=== PATIENT | female | born 1970 | race Caucasian/White ===

== ENCOUNTER 2024-07-04 01:48 | Emergency (ER) | payer SELFPAY ==
[2024-07-04] MEDS ORDERED: ETOMIDATE 20 MG/10 ML VIAL IV ONE (01:49)
[2024-07-04] MEDS ORDERED: ROCURONIUM 50 MG/5 ML VIAL IV ONE (01:49)
--- OUTSIDE RECORDS SUMMARY | 2024-07-04 01:51 | XMS REPORT | Continuity of Care Document ---
Author Name Unknown Address [address] [address] [place] [address] [facility] [place] Address [address] [place] [address] Care Team Providers Care Display Mechanic Name Role Phone PCP, PATIENT DOES NOT HAVE A Primary Care Physic jorje Unavailable Thompson Pinedo Attending Clinician UnavailFaviola Morales Attending Clinician FAVIOLA EL Attending Clinician Unavailab VERONICA Montes Attending Clinician Unavailabl e Sadanala_U Attending Clinician Unavailable Anel Mills Attending Clinician Unavailable Anel Mills Admitting Clinician Unavailable FAVIOLA EL Admitting Clinician Unavailab sarah Higgins_U Admitting Clinician Unavailable Physician, No Primary or Family Admitting Clinic jorje Unavailable Payers Payer Name Policy Type Policy Number Effective Date Expirati on Date Source [employer] [place] [id number] 2011 00:00:00 [place] [id number] 2011 00:00:00 Problems Condition Name Condition Details Condition Category Status Onset Date Resolution Date Last Treatment Date Treating Clinician Comments Source Acute pharyngiti s Acute Pharyngiti s Problem Active 6-14 00:00: 00 [facility] Allergies, Adverse Reactions, Alerts Allergy Name Allergy Type Status Severity Reaction(s) Onset Date Inactive Date Treating Clinician Comments Source No Known Allergie s DA Active U 2015-03 00:00: 00 [facility] No Known Allergie s DA Active U 2015-03 00:00: 00 [facility] NO KNOWN ALLERGIE S Drug Class Active [facility] Social History Social Habit Start Date Stop Date Quantity Comments Source Sexual orientation U [facility] Sex Assigned At 1971 00:00:00 1971 00:00:00 [facility] Smoking Status Start Date Stop Date Source Tobacco smoking consumption unknown [facility] Never Smoker [facility] Medications Ordered Medication Name Filled Medication Name Start Date Stop Date Current Medication? Ordering Clinician Indication Dosage Frequency Signature (SIG) Comments Components Source cefTRIAXone (ROCEPHIN) 1,000 mg in NaCl 0.9% (NS) 100 mL MINI-BAG 05-22 19:15: 00 05-22 19:55 :00 No 1000mg 1,000 mg, IV Piggyback, ONCE, 1 dose, On Sun05/23/23 at 1415, Administer over 30 Minutes, 100 mL
Reas on for Anti-Infec tive: Documented Infection< br>Documen jackie Infection Site: Urine
D uration of Therapy: Once (ED) [facility] lactated ringers IV infusion 1,000 mL 05-22 19:15: 00 05-22 19:25 :00 No 1000mL at 999 mL/hr, 1,000 mL, IV Infusion, ONCE, 1 dose, On Sun05/23/23 at 1415, [facility] NaCl 0.9% (NS) bolus infusion 1,000 mL 05-22 18:15: 00 05-22 18:35 :00 No 1000mL at 999 mL/hr, 1,000 mL, IV Infusion, ONCE, 1 dose, On Sun05/23/23 at 1315, PADDY [facility] haloperidol lactate (HALDOL) injection 5 mg 05-22 17:30: 00 05-22 17:43 :00 No 5mg 5 mg, Intravenou s, ONCE, 1 dose, On Sun05/23/23 at 1230, STAT [facility] ondansetron 4 mg disintegrat ing tablet 05-22 00:00: 00 Yes [id number] 4mg Take 1 tablet by mouth every 8 (eight) hours as needed for Nausea and Vomiting (N/V). [facility] cephALEXin 500 mg capsule 05-22 00:00: 00 06-02 04:59 :00 No [id number] 1000mg Take 2 capsules by mouth in the morning and 2 capsules in the evening. Do all this for 10 days. [facility] ergocalcife rol (vitamin D2) 1,250 mcg (50,000 unit) capsule TAKE 1 CAPSULE BY MOUTH 1 TIME A WEEK ergocalcife rol (vitamin D2) 1,250 mcg (50,000 unit) capsule TAKE 1 CAPSULE BY MOUTH 1 TIME A WEEK No ergocalcif marianne (vitamin D2) 1,250 mcg (50,000 unit) capsule TAKE 1 CAPSULE BY MOUTH 1 TIME A WEEK [facility] propranolol 40 mg tablet Take 1 tablet twice a day by oral route. propranolol 40 mg tablet Take 1 tablet twice a day by oral route. No 1 BID propranolo l 40 mg tablet Take 1 tablet twice a day by oral route. [facility] buspirone 15 mg tablet TAKE 1 TABLET BY MOUTH THREE TIMES DAILY buspirone 15 mg tablet TAKE 1 TABLET BY MOUTH THREE TIMES DAILY No buspirone 15 mg tablet TAKE 1 TABLET BY MOUTH THREE TIMES DAILY [facility] cyanocobala min (vit B-12) 1,000 mcg/mL injection solution ADMINISTER 1 ML IN THE MUSCLE 1 TIME A MONTH cyanocobala min (vit B-12) 1,000 mcg/mL injection solution ADMINISTER 1 ML IN THE MUSCLE 1 TIME A MONTH No cyanocobal couch (vit B-12) 1,000 mcg/mL injection solution ADMINISTER 1 ML IN THE MUSCLE 1 TIME A MONTH [facility] Vital Signs Vital Name Observation Time Observation Value Comments S ource Systolic blood pressure 2023-05-23 20:01:00 144 mm[Hg] [facility] Diastolic blood pressure 2023-05-23 20:01:00 106 mm[Hg] [facility] Heart rate 2023-05-23 20:01:00 77 /min [facility] Body temperature 2023-05-23 20:01:00 36.83 Alessandra [facility] Respiratory rate 2023-05-23 20:01:00 21 /min [facility] Oxygen saturation in Arterial blood by Pulse oximetry 2023-05-23 20:01:00 95 /min [facility] Body height 2023-05-23 16:56:00 165.1 cm [facility] Body weight 2023-05-23 16:56:00 65.772 kg [facility] BMI 2023-05-23 16:56:00 24.13 kg/m2 [facility] BP Diastolic 2021-08-16 00:00:00 89 mm[Hg] [facility] Height 2021-08-16 00:00:00 65 [in_i] [facility] BMI (Body Mass Index) 2021-08-16 00:00:00 26.5 kg/m2 [facility] BP Systolic 2021-08-16 00:00:00 129 mm[Hg] [facility] Body Weight 2021-08-16 00:00:00 159 [lb_av] [facility] Procedures Procedure Date / Time Performed Performing Clinician Source URINALYSIS 2023-05-23 18:32:00 Faviola El Un [facility] URINE DRUG (IMMUNOASSAY) - COMPREHENSIVE DRUG SCREEN W/O REFLEX 2023-05-23 18:32:00 Faviola El [facility] RAPID INFLUENZA A/B 2023-05-23 17:28:00 Peter El [facility] COVID-19 (ID NOW RAPID TESTING) 2023-05-23 17:28:00 Faviola El [facility] XR CHEST 1 VW 2023-05-23 17:25:[facility] 2023-05-23 17:17:00 Faviola El Un [facility] TROPONIN I 2023-05-23 17:17:00 Faviola El Un [facility] COMP. METABOLIC PANEL ([id number]) 2023-05-23 17:17:00 Faviola El [facility] CBC WITH DIFF 2023-05-23 17:17:00 [facility] AND [facility]REATMENT 2023-05-23 16:54:26 Doctor Unassigned, [place] [facility] Partial Hysterectomy 2011-03-05 00:00:00 [facility] Carpal Tunnel Surgery 2006-03-05 00:00:00 [facility] Augmentation Mammoplasty 2006-03-05 00:00:00 [facility] Plan of Care Planned Activity Planned Date Details Comments Source Diagnostic Test Pending 2021-08-16 00:00:00 rapid influenza virus A + B and SARS CoV + SARS CoV 2 Ag panel, IA, upper respiratory specimen [code = rapid influenza virus A + B and SARS CoV + SARS CoV 2 Ag panel, IA, upper respiratory specimen] [facility] Diagnostic Test Pending 2021-08-16 00:00:00 rapid strep group A, throat [code = rapid strep group A, throat] [facility] Encounters Start Date/Time End Date/Time Encounter Type Admission Type Attending [facility] Care Facility Care Department Encounter ID Source 2023-07-20 08:00:00 2023-07-20 08:00:00 Outpatient LUZ MARIA Pinedo Thompson [facility] [id number] [facility] 2023-05-23 12:00:00 2023-05-23 15:12:00 Emergency Faviola El [facility] ([facility]) [id number] [facility] 2023-05-23 12:00:00 2023-05-23 15:12:00 Emergency X FAVIOLA EL [facility] ERT [id number] [facility] 2022-03-29 08:05:00 2022-03-29 23:59:00 Outpatient VERONICA LEONG [id number] [facility] 2021-09-01 06:30:00 2021-09-01 06:30:00 Outpatient Sadanala_U VFP VFP [id number] [facility] 2021-08-17 01:47:00 2021-08-17 01:47:00 Outpatient Sadanala_U VFP VFP [id number] [facility] 2021-08-16 11:51:00 2021-08-16 11:51:00 Outpatient Sadanala_U VFP VFP [id number] [facility] 2021-08-16 00:00:00 2021-08-16 00:00:00 Misty Higgins MD: [id number] [facility], [facility] [address], [place] [address] , Ph. VFP [place] - [facility] - _HOU_[facility] [id number] [facility] 2020-11-02 08:00:00 2020-11-02 08:00:00 Outpatient Thompson Johnson [facility] [id number] [facility] 2019-09-26 12:00:00 2019-09-26 12:00:00 Outpatient Anel Arora [facility] [id number] [facility] Results Test Description Test Time Test Comments Results Resul t Comments Source XR CHEST 1 2023-05-05 0 18:57:49 EXAM: XR CHEST 1 05/23/2023 12:20 PM HISTORY: 51 years old Female with r/o pneumonia TECHNIQUE: Portable AP view of the chest. COMPARISON: None FINDINGS: Lungs and pleura: The lungs are well-expanded and clear. No focalconsolidation, pneumothorax, or pleural effusion is seen. Cardiomediastinal: The cardiomediastinal silhouette is upper limit ofnormal in size. Musculoskeletal: No acute osseous abnormality. [facility] and B and SARS-CoV+SARS-CoV-2 (COVID- 19) Ag panel - Upper respiratory specimen byRapid [id number] 11:29:08 * Test Item Value Reference Range Interpretation Comme nts Influenza A (test code = Influenza A) Presumptive Negative Influenza B (test code = Influenza B) Presumptive Negative SARS-CoV-2 Antigen (test code = SARS-CoV-2 Antigen) Presumptive Negative [facility] Notes Date/Time Note Provider Source 2023-05-23 15:12:26 Pt discharged to home, pt given printed and verbal discharge instructions. Patient verbalized understanding and able to teach back discharge instructions Pt verbalized understanding of instructions, pt awake alert oriented x 4, resp reg unlabored, skin w/d, color appropriate for race, moves all ext well. Advised to seek medical attention for new/prolonged/worsening of symptoms, pt ambulated from unit with steady gait, in no apparent distress. T Marian Abdullahi RN [facility] 2023-05-23 15:04:29 Patient anxious and moving all over the bed, asked patient if she was okay. stating" she always does this, and this is less than what she does normally". [facility] 2023-05-23 13:38:13 Ambulatory to restroom [facility] 2023-05-23 12:50:47 Patient here with nausea and vomiting for past 5 days, patient reporting more nausea than actual vomiting. at bedside. Patient reporting a history of anxiety and reporting she started a new anxiety medication but does not remember the name. Placed on monitor. [facility] 2023-05-23 11:54:27 Gigi Kingsley is a 51 year old female Subjective: Pt ambulatory into triage with c/o vomiting, diarrhea, dizziness, shaking/tremors x5 days. Pt reports decreased PO intake due to vomiting. Pt reports that she has been feeling very anxious over the last days and has been very forgetful. Pt denies chest pain, SOB, fever, cough, numbness, weakness, tingling. Objective: Pt is alert and oriented x4. Respirations even and unlabored. NAD. Pt noticed to have involuntary tremors/shakes in triage. Pt appears anxious. Reported pertinent PMHx: Vertigo, HTN, Anxiety EKG done at 1156. [facility]
[2024-07-04] MEDS ORDERED: propofoL 1,000 MG/100 ML VIAL IV ONE ×2 (01:55→06:39)
[2024-07-04] MEDS ORDERED: DOPAMINE HCL IN DEXTROSE 5 % 400 MG/250 ML KIT IV ONE (01:56)
[2024-07-04] MEDS ORDERED: NA CHLORIDE 0.9% 2,000 ML ONE ×2 (01:58→06:41)
[2024-07-04] MEDS ORDERED: ACETAMINOPHEN 650MG/RECT SUPP PR ONE (03:34)
[2024-07-04 03:53] LABS: Absolute Lymphocytes (CBC) 1.7 K/uL (0.7-4.9); Absolute Monocytes 0.4 K/uL (0.1-1.3); Absolute Neutrophil 2.8 K/uL (1.8-8.0); Basophils % 0.4 % (0-1.3); Eosinophils % 0.3 % (0-4.4); Hematocrit 31.2 % (36.0-45.0); Hemoglobin 10.7 g/dL (12.0-15.0); Lymphocytes % 34.3 % (15.3-44.8); MCH 34.8 pg (27.0-35.0); MCHC 34.4 g/dL (32.0-36.0); MCV 101.2 fL (80-100); MPV 9.4 fL (7.6-11.3); Monocytes % 8.4 % (3.3-12.3); Neutrophils % 56.6 % (41.7-73.7); Nucleated RBC Absolute Count 0.1 (0-0); Nucleated Red Blood Cells % 1.5 % (0-0); Platelets 93 thou/uL (152-406); RBC Red Blood Cell Count 3.08 M/uL (3.86-4.86); Red Cell Distribution Width 13.3 % (12.1-15.2)
--- NOTE | 2024-07-04 03:56 | EDPHYS ---
Physician Documentation [facility] Name: Gigi Thomson Age: 53 yrs Sex: Female : 1970 Arrival Date: 07/04/2024 Time: 01:48 Bed 3 Private MD: ED Physician Ernesto Li HPI: 07/04 02:58 This 53 yrs old Female presents to ER via EMS with complaints of Unresponsive. sp3 02:58 53-year-old female brought in by EMS after called secondary to altered mental sp3 status and thrashing. The following history was obtained after intubation and patient stabilization. I discussed with that patient and both had "food poisoning" for the last 3 to 4 days for which he got better but patient did not. Today they were eating dinner, had 2 glasses of wine, and were getting ready for bed after which she started having these episodes and was difficult to arouse. He reports no prior seizure history, intracranial hemorrhage, drug use, or any other critical process. He states that she takes medicine for anxiety. EMS reported hypotensive and tachycardia for which they started IV fluids. Unit was a basic unit and ALS assist was not available as per the report. ROS, history and physical limited secondary to patient being unresponsive.. - Immunization history:: Adult Immunizations unknown. - Social history:: Smoking status: unknown. ROS: 02:59 Unable to obtain ROS due to altered mental status, patient is on ventilator, sp3 Exam: 03:16 Unable to obtain exam due to obtunded state, sp3 03:16 Neuro: Patient just grunting with no purposeful movements. Pupils 4 mm and reactive. sp3 Limited physical otherwise. Blood sugar 74., Vital Signs: 01:50 BP 73 / 50; Pulse 125; Resp 29 S; Pulse Ox 99% on 4 lpm NC; Weight 60 kg; lg3 02:00 BP 73 / 62; Pulse 127; Resp 24 A; Pulse Ox 99% on 15 lpm Non-rebreather mask; lg3 02:26 BP 84 / 52; Pulse 118; Resp 16; Pulse Ox 100% on ETT vent; lg3 03:30 BP 90 / 59; Pulse 108; Resp 16; Temp 102.7(R); Pulse Ox 100% on ETT vent; lg3 04:17 BP 104 / 71; Pulse 102; Resp 14; Pulse Ox 99% on ETT vent; lg3 04:54 BP 102 / 79; Pulse 99; Resp 17; Pulse Ox 100% on ETT vent; lg3 05:21 BP 115 / 70; Pulse 91; Resp 21 A; Pulse Ox 99% on ETT vent; lg3 05:53 BP 110 / 79; Pulse 85; Resp 20 A; Pulse Ox 99% on ETT vent; lg3 06:08 BP 111 / 81; Pulse 84; Resp 17 A; Pulse Ox 98% on ETT vent; lg3 06:56 BP 106 / 80; Pulse 83; Resp 16 A; Pulse Ox 99% on ETT vent; lg3 Procedures: 03:56 Intubation: Ventilated with 100% NRB prior to procedure. Intubated orally using # 4 sp3 Arthur blade with 7.5 mm ETT. was successful on first attempt. Ventilated with Ambu bag. Tube secured with ETT perdomo Placement verified by CXR, CO2 detector with (+) color change, Patient tolerated well. 04:49 Central Line: the site was prepped with Betadine, in sterile fashion, a triple lumen sp3 catheter was inserted, in the left internal jugular vein, in 1 attempts. placement was verified, by CXR, by blood return, the site was dressed with 4X4s, using sterile technique, the patient tolerated the procedure, well. MDM: 02:11 Medical Screening Exam initiated sp3 03:17 Data reviewed: vital signs, nurses notes, lab test result(s), radiologic studies. ED sp3 course: 53-year-old female thrashing and incoherent. Blood sugar 74. It was decided after hypotension of 70s systolic and heart rate in the 130s to intubate patient to allow for safer care and CT scan. Patient was intubated using etomidate 20 mg and rocuronium 80 mg and subsequently taken to CT. Propofol and dopamine both started. CT scan grossly on my read was negative and we are now awaiting labs. Blood gas initially 7.19 with pCO2 of 38 and pO2 of 471. Ventilator settings. 03:53 ED course: Patient having amber liquid coming out of her rectum consistent with sp3 probable infection from there as a source. Fever now treated. Will go along septic shock pathway and admit patient to the hospital.. 04:48 ED course: Patient continues to bleed and I am concerned about DIC. Given amount of GI sp3 bleeding in the rectal tube, we have ordered 2 units of PRBCs patient now has a left internal jugular central line placed sterilely by me. Chest x-ray pending.. 05:17 ED course: Fibrinogen at 146. FFP ordered. Transfer pending.. sp3 05:45 ED course: Discussed with vertical punch operator at [facility] who has accepted the sp3 patient to their ICU. Final diagnosis septic shock from GI source with multiorgan dysfunction syndrome and early DIC.. 07/04 04:12 Order name: Type And Screen sp3 07/04 02:11 Order name: Acetaminophen; Complete Time: 04:11 sp3 07/04 02:11 Order name: Basic Metabolic Panel; Complete Time: 04:11 sp3 07/04 02:11 Order name: CBC with Diff; Complete Time: 04:59 sp3 07/04 02:11 Order name: ETOH Level; Complete Time: 03:42 sp3 07/04 02:11 Order name: Hepatic Function; Complete Time: 04:11 sp3 07/04 02:11 Order name: PT-INR; Complete Time: 05:14 sp3 07/04 02:11 Order name: Ptt, Activated; Complete Time: 05:14 sp3 07/04 02:11 Order name: Salicylate; Complete Time: 04:00 sp3 07/04 02:11 Order name: Troponin High Sensitivity; Complete Time: 04:11 sp3 07/04 02:13 Order name: ABG sp3 07/04 03:41 Order name: Blood Culture Adult (2) sp3 07/04 03:41 Order name: Lactate w/ 2H reflex if indic.; Complete Time: 05:37 sp3 07/04 03:59 Order name: Manual Differential; Complete Time: 04:59 EDMS 07/04 04:24 Order name: Packed RBC Leukored EDMS 07/04 04:24 Order name: RBC Leukored Pheresis EDMS 07/04 04:48 Order name: Fibrinogen; Complete Time: 05:14 EDMS 07/04 05:19 Order name: Ghost Lactate-NO COLLECT Timer EDMS 07/04 05:27 Order name: ABO/RH no charge; Complete Time: 05:37 EDMS 07/04 02:11 Order name: CT Head Brain wo Cont sp3 07/04 02:13 Order name: CXR XRAY sp3 07/04 03:59 Order name: CT Abd/Pelvis - IV Contrast Only sp3 07/04 04:45 Order name: Chest Single View XRAY [facility] 07/04 02:11 Order name: EKG; Complete Time: 02:12 sp3 07/04 02:11 Order name: EKG - Nurse/Tech; Complete Time: 02:29 sp3 07/04 02:11 Order name: IV Saline Lock; Complete Time: 02:23 sp3 07/04 02:11 Order name: Labs collected and sent; Complete Time: 02:29 sp3 07/04 04:20 Order name: Transfuse; Complete Time: 04:54 sp3 Administered Medications: 05:12 Discontinued: dopamine(400mg/250ml premix) 5 mcg/kg/min IV at calculated rate See lg3 Administration Instructions; Recommended max rate 20 mcg/kg/min; Titrate 2.5 mcg/kg/min as often as every 5 minutes to achieve goal (see titration policy); Goal parameter MAP greater than 65 mmHg. [*Low doses 1 to 4 mcg/kg/min may result in hypotension, decreased SVR*] 02:00 Drug: Rocuronium IVP 80 mg IVP once Route: IVP; Site: left antecubital; lg3 05:22 Follow up: Response: No adverse reaction lg3 02:00 Drug: Etomidate IVP 20 mg IVP once Route: IVP; Site: left antecubital; lg3 05:23 Follow up: Response: No adverse reaction lg3 02:01 Drug: NS 0.9% IV 2000 ml IV at 2000 ml/hr once; to be given as a bolus over 60 minutes lg3 Route: IV; Rate: 2000 ml/hr; Site: left antecubital; 05:24 Follow up: Response: No adverse reaction; IV Status: Completed infusion; IV Intake: lg3 2000ml 02:04 Drug: Propofol IVP 20 mg IVP once; Document RASS score. Route: IVP; Site: left 3 antecubital; 05:23 Follow up: Response: No adverse reaction; RASS: Unarousable (-5) lg3 02:09 Drug: DOPamine IV (400mg/250mL Premix) 5 mcg/kg/min IV at calculated rate See lg3 Administration Instructions; Recommended max rate 20 mcg/kg/min; Titrate 2.5 mcg/kg/min as often as every 5 minutes to achieve goal (see titration policy); Goal parameter MAP greater than 65 mmHg. [*Low doses 1 to 4 mcg/kg/min may result in hypotension, decreased SVR*] Route: IV; Rate: calculated rate; Site: right upper arm; 05:23 Follow up: Response: No adverse reaction lg3 02:11 Drug: Propofol IV 5 mcg/kg/min IV at calculated rate See Administration Instructions; lg3 Standard concentration 1000 mg / 100 mL; Recommended max rate 50 mcg/kg/min; Titrate 5 mcg/kg/min every 5 minutes to achieve goal (see titration policy); Goal parameter RASS score 0 to -2 Route: IV; Rate: calculated rate; Site: right upper arm; 06:54 Follow up: IV Status: Infusion continued upon transfer lg3 03:38 Drug: Acetaminophen MS Suppository 650 mg MS once Route: MS; lg3 05:22 Follow up: Response: No adverse reaction lg3 05:08 Drug: Propofol IVP 40 mg IVP once; Document RASS score. Route: IVP; Site: left lg3 antecubital; 05:24 Follow up: Response: No adverse reaction; RASS: Deep sedation (-4) lg3 05:12 Drug: Norepinephrine IV 0.1 mcg/kg/min IV at calculated rate See Administration lg3 Instructions; (Standard concentration 4 mg / 250 mL D5W); Recommended max rate 3 mcg/kg/min; Titrate 0.05 mcg/kg/min as often as every 5 minutes to achieve goal (see titration policy); Goal parameter MAP greater than 65 mmHg. Route: IV; Rate: calculated rate; Site: right upper arm; 07:11 Follow up: IV Status: Infusion continued upon transfer lg3 05:44 Drug: Cefepime IVPB 1 grams IVPB at 200 ml/hr once over 30 mins; (mix in NS 100 mL) lg3 Route: IVPB; Rate: 200 ml/hr; Infused Over: 30 mins; Site: right upper arm; 06:54 Follow up: Response: No adverse reaction; IV Status: Completed infusion; IV Intake: lg3 100ml 05:45 Drug: Midazolam IVP or IV 0.01 mg/kg/h IV at calculated rate See Administration lg3 Instructions; (Standard concentration: 100 mg / 100 mL NS); Recommended max rate 0.1 mg/kg/hr; Titrate 0.01 mg/kg/hr as often as every 30 minutes to achieve goal (see titration policy); Goal parameter RASS 0 to -2 Route: IV; Rate: calculated rate; Site: left jugular; 06:55 Follow up: IV Status: Infusion continued upon transfer 3 05:48 Drug: Pantoprazole IVP 40 mg IVP once Route: IVP; Site: left antecubital; 3 06:55 Follow up: Response: No adverse reaction 3 05:50 Drug: Pantoprazole IV 8 mg/hr IV at 25 ml/hr continuous; (Standard dilution is 80 mg in lg3 250 mL NS) Route: IV; Rate: 25 ml/hr; Site: left antecubital; 06:54 Follow up: IV Status: Infusion continued upon transfer 3 06:54 Drug: NS 0.9% IV 1000 ml IV at 1000 ml once; to be given as a bolus over 60 minutes lg3 Route: IV; Rate: 1000 ml; Site: left antecubital; 06:55 Follow up: IV Status: Infusion continued upon transfer lg3 06:55 Drug: vancoMYCIN IVPB 1 grams IVPB once over 2 hrs Route: IVPB; Infused Over: 2 hrs; lg3 Site: right upper arm; 06:55 Follow up: IV Status: Infusion continued upon transfer lg3 Disposition Summary: 07/04/24 04:50 Transfer Ordered Notes: Transfer Location: [facility] sp3 Reason: Higher level of care sp3 Condition: Stable(07/04/24 04:50) sp3 Problem: new(07/04/24 04:50) sp3 Symptoms: have worsened(07/04/24 04:50) sp3 Accepting Physician: MOMO(07/04/24 07:12) lg3 Diagnosis - Septic shock, altered mental status, gastroenteritis, acute renal failure, sp3 multiorgan dysfunction syndrome Forms: - Medication Reconciliation Form sp3 - SBAR form sp3 Critical care time excluding procedures: 03:56 Critical care time: Bedside Care: 20 minutes, Consultation: 10 minutes, Family sp3 Intervention: 10 minutes. Total time: 40 minutes Signatures: Dispatcher [employer] Julia Jack RN RN lg3 Ernesto Li MD MD sp3 Corrections: (The following items were deleted from the chart) 02:12 02:12 ACETAMINOPHEN+C.LAB.BRZ ordered. EDMS EDMS 02:12 02:12 BASIC METABOLIC PANEL+C.LAB.BRZ ordered. EDMS EDMS 02:12 02:12 CBC+H.LAB.BRZ ordered. EDMS EDMS 02:12 02:12 ETHANOL+C.LAB.BRZ ordered. EDMS EDMS 02:12 02:12 HEPATIC FUNCTION+C.LAB.BRZ ordered. EDMS EDMS 02:12 02:12 PROTIME (+INR)+COAG.LAB.BRZ ordered. EDMS EDMS 02:12 02:12 Test, Urine+UC.LAB.BRZ ordered. EDMS EDMS 02:12 02:12 PTT, ACTIVATED+COAG.LAB.BRZ ordered. EDMS EDMS 02:12 02:12 SALICYLATE+C.LAB.BRZ ordered. EDMS EDMS 02:12 02:12 URINE DRUG SCREEN+UC.LAB.BRZ ordered. EDMS EDMS 02:12 02:12 Troponin High Sensitivity+C.LAB.BRZ ordered. EDMS EDMS 02:13 02:13 Arterial Blood Gas+RC.LAB.BRZ ordered. EDMS EDMS 03:55 03:55 Telemetry/MedSurg (Inpatient) sp3 sp3 03:55 03:55 sp3 sp3 04:01 03:55 Inpatient Admission sp3 sp3 04:01 03:55 Vinny Vizcaino sp3 sp3 04:01 03:55 Stable sp3 sp3 04:01 03:55 new sp3 sp3 04:01 03:55 have worsened sp3 sp3 04:01 03:55 Standard sp3 sp3 04:01 03:55 Septic shock, gastroenteritis, altered mental status, fever sp3 sp3 04:01 03:55 Intensive Care Unit sp3 sp3 04:01 03:55 sp3 sp3 04:25 04:21 PACKED RBC LEUKORED+BB.LAB.BRZ ordered. EDMS EDMS 04:45 04:45 Chest Single View+RAD.RAD.BRZ ordered. EDMS EDMS 04:47 04:21 FIBRINOGEN+COAG.LAB.BRZ ordered. EDMS EDMS 07:12 04:50 TBD sp3 lg3
--- NOTE | 2024-07-04 03:56 | ER ---
Nurse's Notes [facility] Name: Gigi Thomson Age: 53 yrs Sex: Female : 1970 Arrival Date: 07/04/2024 Time: 01:48 Bed 3 Private MD: Diagnosis: Septic shock, altered mental status, gastroenteritis, acute renal failure, multiorgan dysfunction syndrome Presentation: 07/04 01:50 Chief complaint: Spouse and/or significant other states: found on floor convulsing lg3 around 0100. Coronavirus screen: At this time, unable to obtain information related to travel outside the [place] Ebola Screen: Unable to complete the Ebola screening because: Patient is unresponsive. Initial Sepsis Screen: Does the patient meet any 2 criteria? RR > 20 per min. HR > 90 bpm. Yes Does the patient have a suspected source of infection? No. Patient's initial sepsis screen is negative. Risk Assessment: Do you want to hurt yourself or someone else? Patient reports no desire to harm self or others. Onset of symptoms is unknown. 01:50 Method Of Arrival: EMS: [facility] lg3 01:50 Acuity: GOLDIE 1 lg3 Triage Assessment: 01:50 General: Appears distressed, Behavior is unresponsive. Pain: Unable to use pain scale. lg3 Patient is unresponsive. EENT: No deficits noted. Neuro: Sharma Agitation-Sedation Scale (RASS): -5 Unarousable Level of Consciousness is obtunded, unresponsive, Oriented to none. Cardiovascular: Capillary refill < 3 seconds Clubbing of nail beds is absent JVD is absent Patient's skin is warm and dry. Rhythm is sinus tachycardia. Respiratory: Respiratory pattern is agonal tachypnea snoring. GI: Abdomen is flat, non-distended. : No signs and/or symptoms were reported regarding the genitourinary system. Derm: Skin is intact, is healthy with good turgor, Skin is dry, Skin is normal, Skin temperature is warm. Musculoskeletal:. - Immunization history:: Adult Immunizations unknown. - Social history:: Smoking status: unknown. Screenin:34 [facility] ED Fall Risk Assessment (Adult) History of falling in the last 3 months, lg3 including since admission No falls in past 3 months (0 pts) Confusion or Disorientation Yes (5 pts) Intoxicated or Sedated No (0 pts) Impaired Gait Yes (1 pt) Mobility Assist Device Used No (0 pt) Altered Elimination Yes (1 pt) Score/Fall Risk Level 3 or more points = High Risk Maintained a safe environment. Abuse screen: Denies threats or abuse. Denies injuries from another. Nutritional screening: No deficits noted. Tuberculosis screening: No symptoms or risk factors identified. Assessment: 02:28 General: see triage assessment. lg3 04:15 GI: Stools are reported to be diarrhea. blood tinged. EENT: Nares with bleeding noted lg3 bilaterally. 04:16 EENT: bleeding noted from mouth. lg3 05:51 Neuro: Sharma Agitation-Sedation Scale (RASS): -5 Unarousable Level of Consciousness lg3 is unresponsive. Cardiovascular: No deficits noted. Respiratory: Airway via oral intubation. GI: Abdomen is flat, non-distended, NGT in place, to suction. Stools are reported to be diarrhea. : Mancini in place to gravity drainage. 06:56 Reassessment: No changes from previously documented assessment. General: Appears in no lg3 apparent distress. Neuro: Sharma Agitation-Sedation Scale (RASS): -5 Unarousable Level of Consciousness is unresponsive. Cardiovascular: No deficits noted. Respiratory: Airway is patent via oral intubation. GI: Abdomen is flat, non-distended, NGT in place, to suction. Stools are reported to be diarrhea. : 3-way catheter in place to gravity drainage 0ml output. Derm: Skin is intact, Skin is dry, Skin is mottled, pale. 07:08 General: report given to lg3 Vital Signs: 01:50 BP 73 / 50; Pulse 125; Resp 29 S; Pulse Ox 99% on 4 lpm NC; Weight 60 kg; lg3 02:00 BP 73 / 62; Pulse 127; Resp 24 A; Pulse Ox 99% on 15 lpm Non-rebreather mask; lg3 02:26 BP 84 / 52; Pulse 118; Resp 16; Pulse Ox 100% on ETT vent; lg3 03:30 BP 90 / 59; Pulse 108; Resp 16; Temp 102.7(R); Pulse Ox 100% on ETT vent; lg3 04:17 BP 104 / 71; Pulse 102; Resp 14; Pulse Ox 99% on ETT vent; lg3 04:54 BP 102 / 79; Pulse 99; Resp 17; Pulse Ox 100% on ETT vent; lg3 05:21 BP 115 / 70; Pulse 91; Resp 21 A; Pulse Ox 99% on ETT vent; lg3 05:53 BP 110 / 79; Pulse 85; Resp 20 A; Pulse Ox 99% on ETT vent; lg3 06:08 BP 111 / 81; Pulse 84; Resp 17 A; Pulse Ox 98% on ETT vent; lg3 06:56 BP 106 / 80; Pulse 83; Resp 16 A; Pulse Ox 99% on ETT vent; lg3 ED Course: 01:50 Arm band placed on right wrist. lg3 01:50 Inserted saline lock: 20 gauge in left antecubital area, using aseptic technique. Blood lg3 collected. Flushed with 10 mL NS. 01:52 Patient arrived in ED. kmf 02:02 Assisted provider with intubation using 7.5 mm ETT via oral route. ET tube secured at lg3 23cm at the lips. Set up intubation tray. Intubated by Ernesto Li MD Placement verified by CXR, Patient tolerated well. 02:05 Inserted saline lock: 20 gauge in right upper arm, using aseptic technique. lg3 02:10 Ernesto Li MD is Attending Physician. sp3 02:14 Triage completed. lg3 02:34 CT Head Brain wo Cont In Process Unspecified. EDMS 02:34 Patient has correct armband on for positive identification. Placed in gown. Bed in low lg3 position. Call light in reach. Side rails up X 1. Client placed on continuous cardiac and pulse oximetry monitoring. NIBP monitoring applied. awake overnight monitor on. Door closed. Noise minimized. Warm blanket given. Pillow given. One-on-one care X 90 minutes. 02:41 CXR XRAY In Process Unspecified. EDMS 03:20 Mancini cath inserted, using sterile technique, 16 Fr., by me, balloon inflated, Patient oe tolerated well. 03:55 Vinny Vizcaino MD is Hospitalizing Provider. sp3 04:17 Cleaned of incontinence. Linen changed. lg3 04:19 NGT: inserted 16 Fr. via left nare. verified placement of air over stomach, verified lg3 return of gastric contents, to intermittent suction. returned dark colored blood. 04:40 Assisted provider with central line placement. Set up central line tray. Triple lumen lg3 line placed in left internal jugular. Line placed by Ernesto Li MD Placement verified by CXR, blood return, Blood was collected. Patient tolerated well. Before procedure, did Practitioner(s) obtain informed consent? No. Patient \T\ family education about procedure, CLABSI prevention and S/S of infection? No. Time-out/Briefing performed prior to start of procedure? Yes. Was handwashing/sanitizing done immediately prior to procedure? Yes. Was patient positioned to in a way to prevent air embolism? Yes. Was procedure site sterilized? Yes, with chlorhexidine. Was the site allowed to dry? Yes. Was local anesthetic and/or sedation utilized? Yes. During the procedure, did the Practitioner(s) maintain a sterile field? Yes. Were unused ports clamped during insertion? Yes. Was a 2nd qualified MD obtained after 3 unsuccessful insertion attempts? No. Was blood aspirated from each lumen? Yes. After the procedure, did the Practitioner(s) clean the site and apply a sterile dressing? Yes. 04:40 First set of blood cultures drawn by me. lg3 04:54 Fibrinogen Sent. lg3 04:54 Packed RBC Leukored Sent. lg3 04:54 RBC Leukored Pheresis Sent. lg3 04:54 Type And Screen Sent. lg3 05:04 Chest Single View XRAY In Process Unspecified. EDMS 05:05 initiated transfer with Rosy at [facility]. [facility] 05:40 doc to doc. [facility] 06:10 Julia Marques RN is Primary Nurse. lg3 06:33 pt was accepted to [facility] \T\[id number]. Accepting Dr. Barrios. Accepting admin Rosy. Pt will [facility] go by [facility]. number for nurse to nurse report [phone]. 06:56 Patient transferred, IV remains in place. lg3 06:58 CT Abd/Pelvis - IV Contrast Only In Process Unspecified. EDMS Administered Medications: 05:12 Discontinued: dopamine(400mg/250ml premix) 5 mcg/kg/min IV at calculated rate See lg3 Administration Instructions; Recommended max rate 20 mcg/kg/min; Titrate 2.5 mcg/kg/min as often as every 5 minutes to achieve goal (see titration policy); Goal parameter MAP greater than 65 mmHg. [*Low doses 1 to 4 mcg/kg/min may result in hypotension, decreased SVR*] 02:00 Drug: Rocuronium IVP 80 mg IVP once Route: IVP; Site: left antecubital; lg3 05:22 Follow up: Response: No adverse reaction lg3 02:00 Drug: Etomidate IVP 20 mg IVP once Route: IVP; Site: left antecubital; lg3 05:23 Follow up: Response: No adverse reaction lg3 02:01 Drug: NS 0.9% IV 2000 ml IV at 2000 ml/hr once; to be given as a bolus over 60 minutes lg3 Route: IV; Rate: 2000 ml/hr; Site: left antecubital; 05:24 Follow up: Response: No adverse reaction; IV Status: Completed infusion; IV Intake: lg3 2000ml 02:04 Drug: Propofol IVP 20 mg IVP once; Document RASS score. Route: IVP; Site: left 3 antecubital; 05:23 Follow up: Response: No adverse reaction; RASS: Unarousable (-5) lg3 02:09 Drug: DOPamine IV (400mg/250mL Premix) 5 mcg/kg/min IV at calculated rate See lg3 Administration Instructions; Recommended max rate 20 mcg/kg/min; Titrate 2.5 mcg/kg/min as often as every 5 minutes to achieve goal (see titration policy); Goal parameter MAP greater than 65 mmHg. [*Low doses 1 to 4 mcg/kg/min may result in hypotension, decreased SVR*] Route: IV; Rate: calculated rate; Site: right upper arm; 05:23 Follow up: Response: No adverse reaction lg3 02:11 Drug: Propofol IV 5 mcg/kg/min IV at calculated rate See Administration Instructions; lg3 Standard concentration 1000 mg / 100 mL; Recommended max rate 50 mcg/kg/min; Titrate 5 mcg/kg/min every 5 minutes to achieve goal (see titration policy); Goal parameter RASS score 0 to -2 Route: IV; Rate: calculated rate; Site: right upper arm; 06:54 Follow up: IV Status: Infusion continued upon transfer lg3 03:38 Drug: Acetaminophen CA Suppository 650 mg CA once Route: CA; lg3 05:22 Follow up: Response: No adverse reaction lg3 05:08 Drug: Propofol IVP 40 mg IVP once; Document RASS score. Route: IVP; Site: left lg3 antecubital; 05:24 Follow up: Response: No adverse reaction; RASS: Deep sedation (-4) 3 05:12 Drug: Norepinephrine IV 0.1 mcg/kg/min IV at calculated rate See Administration lg3 Instructions; (Standard concentration 4 mg / 250 mL D5W); Recommended max rate 3 mcg/kg/min; Titrate 0.05 mcg/kg/min as often as every 5 minutes to achieve goal (see titration policy); Goal parameter MAP greater than 65 mmHg. Route: IV; Rate: calculated rate; Site: right upper arm; 07:11 Follow up: IV Status: Infusion continued upon transfer 3 05:44 Drug: Cefepime IVPB 1 grams IVPB at 200 ml/hr once over 30 mins; (mix in NS 100 mL) 3 Route: IVPB; Rate: 200 ml/hr; Infused Over: 30 mins; Site: right upper arm; 06:54 Follow up: Response: No adverse reaction; IV Status: Completed infusion; IV Intake: lg3 100ml 05:45 Drug: Midazolam IVP or IV 0.01 mg/kg/h IV at calculated rate See Administration lg3 Instructions; (Standard concentration: 100 mg / 100 mL NS); Recommended max rate 0.1 mg/kg/hr; Titrate 0.01 mg/kg/hr as often as every 30 minutes to achieve goal (see titration policy); Goal parameter RASS 0 to -2 Route: IV; Rate: calculated rate; Site: left jugular; 06:55 Follow up: IV Status: Infusion continued upon transfer 3 05:48 Drug: Pantoprazole IVP 40 mg IVP once Route: IVP; Site: left antecubital; lg3 06:55 Follow up: Response: No adverse reaction 3 05:50 Drug: Pantoprazole IV 8 mg/hr IV at 25 ml/hr continuous; (Standard dilution is 80 mg in lg3 250 mL NS) Route: IV; Rate: 25 ml/hr; Site: left antecubital; 06:54 Follow up: IV Status: Infusion continued upon transfer 3 06:54 Drug: NS 0.9% IV 1000 ml IV at 1000 ml once; to be given as a bolus over 60 minutes 3 Route: IV; Rate: 1000 ml; Site: left antecubital; 06:55 Follow up: IV Status: Infusion continued upon transfer lg3 06:55 Drug: vancoMYCIN IVPB 1 grams IVPB once over 2 hrs Route: IVPB; Infused Over: 2 hrs; lg3 Site: right upper arm; 06:55 Follow up: IV Status: Infusion continued upon transfer lg3 Medication: 06:56 VIS not applicable for this client. lg3 Intake: 05:24 IV: 2000ml; Total: 2000ml. lg3 06:54 IV: 100ml; Total: 2100ml. lg3 Output: 06:56 Gastric: 450ml (NGT); Stool: 1700 (Loose Stool) ; Total: 450ml. lg3 Outcome: 03:55 Decision to Hospitalize by Provider. sp3 04:50 ER care complete, transfer ordered by . sp3 07:11 Transferred by helicopter to [facility], Transfer form completed. lg3 07:11 critical 07:12 Patient left the ED. lg3 Signatures: Dispatcher [employer] EDMS Marshall Hook Lacie, RN RN lg3 Ernesto Li MD MD sp3 Wanda Gamboa km Corrections: (The following items were deleted from the chart) 02:22 01:50 BP 73 / 50; Pulse 125bpm; Resp 29bpm; Spontaneous; Pulse Ox 99% 4 lpm Nasal lg3 Cannula; lg3
[2024-07-04 04:07] LABS: ALT/SGPT 992 U/L (13-56); AST/SGOT 2820 U/L (15-37); Albumin 3.1 g/dL (3.4-5.0); Albumin/Globulin Ratio 1.1 (1.1-1.8); Alkaline Phosphatase 61 U/L (45-117); Anion Gap 21.5 mEq/L (5.0-15.0); BUN Blood Urea Nitrogen 45 mg/dL (7-18); Bicarbonate 15 mEq/L (21-32); Bilirubin Indirect, Calculated 0.6 mg/dL (0.2-0.8); Bilirubin Total 1.6 mg/dL (0.2-1.0); Globulin 2.9 g/dL (2.3-3.5); Glomerular Filtration Rate 14 ml/min (=/>90); Glucose Level 92 mg/dL (74-106); Potassium 3.5 mEq/L (3.5-5.1); Sodium Level 138 mEq/L (136-145)
[2024-07-04] MEDS ORDERED: NOREPINEPHRINE BITARTRATE/D5W 4 MG/250 ML BAG IV ONE (04:14)
[2024-07-04] MEDS ORDERED: NA CHLORIDE 0.9% 500 ML ONE ×2 (04:33→05:29)
[2024-07-04 04:54] LABS: Band Neutrophils 6 % (0-1); Differential Total Cells Count 100; Lymphocytes 43 % (15-42); Monocytes 2 % (0-10); Nucleated Red Blood Cells 12 /100WBC; Reactive Lymphocytes 5 %; Segmented Neutrophils 44 % (40-80)
[2024-07-04 04:55] LABS: Anisocytosis 2+; Blood Morphology Comment NOTED (NOT SEEN); Platelet Estimate DECR
[2024-07-04 05:08] LABS: PT Prothrombin Time 16.8 SECONDS (10-13.0); Protime INR 1.5
[2024-07-04] MEDS ORDERED: PANTOPRAZOLE 40 MG INJ ONE (05:28)
[2024-07-04] MEDS ORDERED: VANCOMYCIN 1 GM/VIAL ONE (05:28)
[2024-07-04] MEDS ORDERED: CEFEPIME 1 GM/VIAL ONE (05:29)
[2024-07-04] MEDS ORDERED: NA CHLORIDE 0.9% 100 ML ONE (05:29)
[2024-07-04] MEDS ORDERED: MIDAZOLAM HCL IN 0.9 % NACL/PF 100 MG/100 ML BAG IVPB ONE (05:40)
--- NOTE | 2024-07-04 05:44 | RAD REPORT ---
EXAM DESCRIPTION: Chest Single View CLINICAL HISTORY: post intubation COMPARISON: None TECHNIQUE: Single AP view of the chest. FINDINGS: Endotracheal tube tip approximately 4.7 cm above the daniel. Lung volumes adequate. Cardiac silhouette is normal in size. No pneumothorax. No large pleural effusion. No focal consolidation. No acute bony finding. IMPRESSION: 1. Endotracheal tube tip approximately 4.7 cm above the daniel. 2. No acute cardiopulmonary findings. Electronically signed by: Zaina Cortes MD 07/04/2024 04:04 AM CDT TYG Due to temporary technical issues with the PACS/[employer] reporting system, reports are being alejandra d by the in-house radiologist without review as a courtesy to ensure prompt reporting the interpreting radiologist is fully responsible for the content of the report. Transcribed Date/Time: 07/04/2024 5:43 AM
--- NOTE | 2024-07-04 06:05 | RAD REPORT ---
EXAM DESCRIPTION: Chest Single View RadLex: XR CHEST 1 VIEW CLINICAL HISTORY: 53 years Female, central line placement COMPARISON: 07/04/2024 FINDINGS: Single portable AP supine view of the chest. Endotracheal tube is unchanged. Feeding tube descends be low the level of this image. Left internal jugular catheter tip projects over the lower SVC. Normal size of the cardiac silhouette. No pulmonary vascular congestion. No focal consolidation, pleural eff usion, or visualized pneumothorax. No acute osseous abnormality. IMPRESSION: Left internal jugular catheter tip projects over the lower SVC. Electronically signed by: Natalee Velasquez MD 07/04/2024 05:46 AM CDT RP Due to temporary technical issues with the PACS/[employer] reporting system, reports are being alejandra d by the in-house radiologist without review as a courtesy to ensure prompt reporting the interpreting radiologist is fully responsible for the content of the report. Transcribed Date/Time: 07/04/2024 6:04 AM
--- NOTE | 2024-07-04 06:57 | RAD REPORT ---
ADDENDUM #1 These critical findings were discussed with Dr. Li on 07/04/2024 at 2:45 AM central time. Electronically signed by: Mallorie Hanna DO 07/04/2024 06:27 AM [facility] End of Addendum EXAM: CT head without IV contrast CLINICAL DATA: 53 years Female ams;a STROKE ALERT TECHNICAL DATA: Multiple axial CT images of the brain were performed followed by sagittal and coronal reconstructed i mages. The CT study is performed according to ALARA (as low as reasonably achievable) or ALARA/IMAGE GENTLY, with automatic adjustment of mA and/or kV according to patient size. Performed on: 07/04/2024 at 2:26 AM Comparisons: No prior studies were available for comparison. FINDINGS: Brain: There is no evidence of mass, acute mass effect or midline shift. There are no acute extra-axi al fluid collections. There is no evidence of acute intracranial hemorrhage. The cerebral sulci and ventricles are normal in size and configuration. There are no focal abnormal areas of increased o r decreased attenuation. There is no evidence of a hyperdense MCA. Paranasal Sinuses and Mastoids: There is no significant mucosal thickening of the paranasal sinuses. The mastoid air cells are clear. Orbits: The orbital contents are grossly unremarkable. Bones: No acute osseous abnormalities are identified. Soft Tissues: No focal soft tissue abnormalities are identified. IMPRESSION: There is no evidence of acute intracranial pathology. Electronically signed by: Mallorie Hanna DO 07/04/2024 02:42 AM [facility] Due to temporary technical issues with the PACS/[employer] reporting system, reports are being alejandra d by the in-house radiologist without review as a courtesy to ensure prompt reporting the interpreting radiologist is fully responsible for the content of the report. Transcribed Date/Time: 07/04/2024 6:57 AM
--- NOTE | 2024-07-04 07:27 | RAD REPORT ---
EXAMINATION: Abdomen Pelvis W Contrast CLINICAL INDICATION: Female, 53 years old.ABD PAIN TECHNIQUE: CT abdomen and pelvis was performed, after the administration of IV contrast, as per [facility]. Axial, sagittal and coronal reconstructions were obtained. One or more of the following dose reduction techniques were used: Automated exposure control, adjustment of the mA and/o r kV according to patient size, and/or iterative reconstruction. Unless otherwise specified, incidental findings do not require dedicated imaging follow-up. [id number]. COMPARISON: No prior exam. FINDINGS: LOWER CHEST: Dependent atelectasis. No significant pericardial effusion. Bilateral breast prosthesesM ild circumferential thickening of the distal esophagus which could reflect esophagitis. UPPER GI: Enteric tube in stomach. LIVER: Steatosis. Several low density lesions in the left hepatic lobe are likely benign. GALLBLADDER/BILE DUCTS: No biliary ductal dilatation.? PANCREAS: No mass, ductal dilation, or sam-pancreatic fluid. SPLEEN: Unremarkable. ADRENALS: No adrenal masses. KIDNEYS AND URETERS: No hydronephrosis.No suspicious renal mass. ABDOMINAL AORTA AND OTHER VESSELS: Normal caliber aorta and IVC. PERITONEUM: No abnormal free fluid. No free air. LYMPH NODES: No pathologic lymphadenopathy. ABDOMINAL WALL: Unremarkable SMALL BOWEL/COLON: Small bowel has normal course and caliber. No colonic wall thickening or pericolon ic inflammatory changes.Normal appendix. URINARY BLADDER: Underdistended but grossly unremarkable. REPRODUCTIVE ORGANS: No pathologic process. MUSCULOSKELETAL: No acute or suspicious osseous abnormality. ADDITIONAL FINDINGS: None. IMPRESSION: No acute findings within the abdomen or pelvis. Hepatic steatosis.
[2024-07-04 08:10] VITALS: TEMP 102.7
[2024-07-04 08:20] VITALS: BP 106/80; O2SAT 99
[2024-07-04 16:15] LABS: Arterial Blood Carboxyhemoglob 0.1 % (0-1.5); Blood Gas Oxyhemoglobin 96.9 % (94-97)
[2024-07-04 16:16] LABS: Blood Gas THB 9.9 g/dl (12-18)
== END 2024-07-04 07:12 | disposition short-term general hospital (02) ==
LOC: ER 01:48
PROC: 30233N1 Transfusion of Nonautologous Red Blood Cells into Peripheral Vein, Percutaneous Approach (ICD-10-PCS; principal; 2024-07-04)
DX: N17.9 Acute kidney failure, unspecified (principal); R65.21 Severe sepsis with septic shock; M35.81 Multisystem inflammatory syndrome; K52.9 Noninfective gastroenteritis and colitis, unspecified
CPT/HCPCS: 31500; 36415; 36556; 51702; 70450; 71045; 74177; 80048; 80076; 80143; 80179; 82077; 82805; 83605; 84484; 85025; 85384; 85610; 85730; 86850; 86900; 86901; 86920; 87040; 87205; 93005; 99291; 99292; J0692; J2250; J2470; J2704; J3370; J7030; J7050; P9016; Q9967

== ENCOUNTER 2024-07-27 14:42 | Emergency (ER) | payer SELFPAY ==
[2024-07-27 16:53] LABS: Absolute Eosinophils 0.1 K/uL (0-0.5); Absolute Lymphocytes (CBC) 1.4 K/uL (0.7-4.9); Absolute Monocytes 0.9 K/uL (0.1-1.3); Absolute Neutrophil 3.4 K/uL (1.8-8.0); Basophils % 0.7 % (0-1.3); Eosinophils % 1.7 % (0-4.4); Hematocrit 27.2 % (36.0-45.0); Hemoglobin 9.3 g/dL (12.0-15.0); Lymphocytes % 24.2 % (15.3-44.8); MCH 32.8 pg (27.0-35.0); MCV 96.3 fL (80-100); MPV 8.9 fL (7.6-11.3); Monocytes % 15.5 % (3.3-12.3); Neutrophils % 57.9 % (41.7-73.7); Nucleated Red Blood Cells % 0.1 % (0-0); Platelets 139 thou/uL (152-406); RBC Red Blood Cell Count 2.83 M/uL (3.86-4.86); Red Cell Distribution Width 16.5 % (12.1-15.2)
[2024-07-27] MEDS ORDERED: CEFTRIAXONE 1000 MG/VIAL ONE (16:53)
[2024-07-27] MEDS ORDERED: ONDANSETRON 4 MG/2 ML VIAL ONE (16:59)
[2024-07-27 17:01] LABS: PT Prothrombin Time 10.6 SECONDS (10-13.0); PTT, Activated Partial Thromb 30.1 SECONDS (27.2-37.4); Protime INR 0.93
[2024-07-27 17:10] LABS: Albumin 2.5 g/dL (3.4-5.0); Albumin/Globulin Ratio 0.6 (1.1-1.8); Anion Gap 10.7 mEq/L (5.0-15.0); Bilirubin Total 1.2 mg/dL (0.2-1.0); Globulin 4.2 g/dL (2.3-3.5); Potassium 3.7 mEq/L (3.5-5.1); Protein, Total 6.7 g/dL (6.4-8.2)
--- NOTE | 2024-07-27 18:19 | ER ---
Nurse's Notes [facility] Name: Gigi Thomson Age: 52 yrs Sex: Female : 12/06/1971 Arrival Date: 07/27/2024 Time: 14:42 Bed IW10 Private MD: Diagnosis: Spontaneous bacterial peritonitis;Acute kidney failure, unspecified Presentation: 07/27 14:53 Chief complaint: Patient states: sent by Dr Fan for + paracentesis fluid culture. tx1 Paracentesis was done yesterday morning as well as Hemodialysis. Due to start HD M,W,F this week. Recently seen here and flown to [place] for acute liver failure with hepatic coma. Coronavirus screen: At this time, the client does not indicate any symptoms associated with coronavirus-19. Ebola Screen: No symptoms or risks identified at this time. Initial Sepsis Screen: Does the patient meet any 2 criteria? No. Patient's initial sepsis screen is negative. Does the patient have a suspected source of infection? No. Patient's initial sepsis screen is negative. Risk Assessment: Do you want to hurt yourself or someone else? Patient reports no desire to harm self or others. Onset of symptoms is unknown. 14:53 Method Of Arrival: Ambulatory tx1 14:53 Acuity: GOLDIE 3 me1 Triage Assessment: 15:00 General: Appears uncomfortable, Behavior is calm, cooperative, appropriate for age. bp Pain: Complains of pain in abdomen, right leg and left leg. EENT: No deficits noted. Neuro: No deficits noted. Cardiovascular: No deficits noted. Respiratory: No deficits noted. GI: Abdomen is noted to have ascites. : No signs and/or symptoms were reported regarding the genitourinary system. Derm: No deficits noted. Musculoskeletal: No deficits noted. 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 - Infectious Disease History:: Denies. - Social history:: Smoking status: Patient denies any tobacco usage or history of. Screenin:00 [facility] ED Fall Risk Assessment (Adult) History of falling in the last 3 months, bp including since admission No falls in past 3 months (0 pts) Confusion or Disorientation No (0 pts) Intoxicated or Sedated No (0 pts) Impaired Gait No (0 pts) Mobility Assist Device Used No (0 pt) Altered Elimination No (0 pt) Score/Fall Risk Level 0 - 2 = Low Risk Oriented to surroundings. Abuse screen: Denies threats or abuse. Denies injuries from another. Nutritional screening: No deficits noted. Tuberculosis screening: No symptoms or risk factors identified. Assessment: 16:00 General: Appears in no apparent distress. uncomfortable, Behavior is calm, cooperative, ld1 appropriate for age. Pain: Denies pain. Neuro: Level of Consciousness is awake, alert, obeys commands, Oriented to person, place, time, situation. 16:00 Cardiovascular: Capillary refill < 3 seconds Patient's skin is warm and dry. ld1 Respiratory: Airway is patent Respiratory effort is even, unlabored. GI: Abdomen is round distended, Bowel sounds present X 4 quads. Abd is soft Abd is non tender. : No signs and/or symptoms were reported regarding the genitourinary system. EENT: No signs and/or symptoms were reported regarding the EENT system. Derm: Skin is jaundiced. Musculoskeletal: No signs and/or symptoms reported regarding the musculoskeletal system. 20:17 Reassessment: Patient appears in no apparent distress at this time. Patient and/or km10 family updated on plan of care and expected duration. Pain level reassessed. Patient is alert, oriented x 3, equal unlabored respirations, skin warm/dry/pink. report to alfa potter at [facility] Patient denies pain at this time. Vital Signs: 14:53 BP 124 / 81; Pulse 69; Resp 17; Temp 98.4; Pulse Ox 100% ; Weight 66.22 kg; Height 5 me1 ft. 5 in. ; Pain 5/10; 16:00 BP 131 / 89; Pulse 80; Resp 18; Pulse Ox 100% on R/A; ld1 18:00 BP 142 / 85; Pulse 66; Resp 19; Pulse Ox 99% ; bp 20:07 BP 138 / 85; Pulse 69; Resp 17; Temp 98.4; Pulse Ox 99% ; Pain 0/10; km10 14:53 Body Mass Index 24.30 (66.22 kg, 165.1 cm) me1 14:53 Pain Scale: Adult me1 20:07 Pain Scale: Adult 10 ED Course: 14:44 Patient arrived in ED. im 14:48 Contreras Zavala, MEDICAL UNDERWRITER-C is PHCP. dr5 14:48 Kwame Land MD is Attending Physician. dr5 14:59 Triage completed. me1 14:59 Arm band placed on Patient placed in waiting room. me1 15:00 Patient has correct armband on for positive identification. bp 16:35 John Atkinson, RN is Primary Nurse. bp 16:59 Blood Culture Adult (2) Sent. ld1 16:59 Lactate w/ 2H reflex if indic. Sent. ld1 16:59 Inserted saline lock: 20 gauge in right antecubital area, using aseptic technique. ld1 Blood collected. Flushed with 10 mL NS. 17:[address] [facility] transfer Center no answer. sp 18:21 Primary Nurse role handed off by John Atkinson, ALFA ld1 18:21 Radha Cole, ALFA is Primary Nurse. ld1 20:30 No provider procedures requiring assistance completed. Patient transferred, IV remains bm8 in place. 07/28 01:24 Provided Education on: need for transfer. bm8 Administered Medications: 07/27 16:59 Drug: Rocephin IV 1 grams IV at per protocol once; Given slow IV push per pharmacy ld1 instructions Route: IV; Rate: per protocol; Site: right antecubital; 18:50 Follow up: IV Status: Completed infusion bp 17:07 Drug: Ondansetron IVP 4 mg IVP once; over 2 minutes Route: IVP; Site: right antecubital;ld1 18:51 Follow up: Response: No adverse reaction bp 18:50 Drug: vancoMYCIN IVPB 1 grams IVPB once over 2 hrs Route: IVPB; Infused Over: 2 hrs; bp Site: right antecubital; 20:09 Follow up: Response: No adverse reaction; IV Status: Completed infusion km10 Medication: 20:30 VIS not applicable for this client. bm8 Outcome: 18:19 ER care complete, transfer ordered by . dr5 20:30 Transferred by ground EMS to [facility], Transfer form completed. bm8 X-rays sent w/ patient. 20:30 Condition: stable 20:30 Instructed on the need for transfer, Demonstrated understanding of instructions, follow-up care, medications, 07/28 01:25 Patient left the ED. bm8 Signatures: Angela Covington Brian, RN RN bp Radha Cole, RN RN ld1 Regla Boogie Michelle, RN RN me1 Daniel Mistry RN RN bm8 Contreras Zavala, MEDICAL UNDERWRITER-C MEDICAL UNDERWRITER-[facility]5 Martha العراقي RN RN km10
--- NOTE | 2024-07-27 18:19 | EDPHYS ---
Physician Documentation [facility] Name: Gigi Thomson Age: 52 yrs Sex: Female : 12/06/1971 Arrival Date: 07/27/2024 Time: 14:42 Bed IW10 Private MD: ED Physician Kwame Land HPI: 07/27 17:17 This 52 yrs old Female presents to ER via Ambulatory with complaints of dr5 Abdominal Swelling, Swelling of Lower Extremity. 17:17 The patient presents with abdominal distention that is diffuse. Onset: The dr5 symptoms/episode began/occurred acutely. Patient is a 52-year-old female with history of liver failure and acute kidney failure that was called today for positive paracentesis culture result by Tracee Fan at [facility]. Patient reports that her lower extremity edema is worsening with diffuse abdominal pain and tenderness. Patient states that she was also recommended to have dialysis completed. Patient was discharged from hospital last night.. 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 - Infectious Disease History:: Denies. - Social history:: Smoking status: Patient denies any tobacco usage or history of. ROS: 17:17 Constitutional: as per hpi dr5 Exam: 17:17 Constitutional: This is a well developed, well nourished patient who is awake, alert, dr5 and in no acute distress. Head/Face: Normocephalic, atraumatic. Eyes: Pupils equal round and reactive to light, extra-ocular motions intact. Lids and lashes normal. Conjunctiva and sclera are icteric and not injected. Cornea within normal limits. Periorbital areas with no swelling, redness, or edema. Chest/axilla: Normal chest wall appearance and motion. Nontender with no deformity. No lesions are appreciated. Cardiovascular: Regular rate and rhythm with a normal S1 and S2. Normal PMI, no JVD. No pulse deficits. Respiratory: Lungs have equal breath sounds bilaterally, clear to auscultation. No rales, rhonchi or wheezes noted. No increased work of breathing, no retractions or nasal flaring. 17:17 Skin: Warm, dry with normal turgor. Normal color with no rashes, no lesions, and no evidence of cellulitis. MS/ Extremity: Pulses equal, no cyanosis. Moderate swelling noted to bilateral lower extremity. 17:17 Cardiovascular: Edema: 3+ edema to level of left ankle, left foot, left toes, right ankle, right foot and right toes, pedal edema, that is moderate, 17:17 Abdomen/GI: Inspection: distension, that is moderate, Palpation: moderate abdominal tenderness, in all quadrants, + fluid wave, Vital Signs: 14:53 BP 124 / 81; Pulse 69; Resp 17; Temp 98.4; Pulse Ox 100% ; Weight 66.22 kg; Height 5 me1 ft. 5 in. ; Pain 5/10; 16:00 BP 131 / 89; Pulse 80; Resp 18; Pulse Ox 100% on R/A; ld1 18:00 BP 142 / 85; Pulse 66; Resp 19; Pulse Ox 99% ; bp 20:07 BP 138 / 85; Pulse 69; Resp 17; Temp 98.4; Pulse Ox 99% ; Pain 0/10; km10 14:53 Body Mass Index 24.30 (66.22 kg, 165.1 cm) me1 14:53 Pain Scale: Adult me1 20:07 Pain Scale: Adult km10 MDM: 14:48 Medical Screening Exam initiated dr5 17:17 Differential diagnosis: SBP, Acute Kidney Failure, Liver Failure. Data reviewed: vital dr5 signs, nurses notes. Consideration of Admission/Observation Patient was admitted/placed on observation. Transfer due to SBP and need for hepatology / GI. I considered the following discharge prescriptions or medication management in the emergency department Medications were administered in the Emergency Department. See MAR. External Records Reviewed: Outpatient labs: Faxed records from [facility] including negative blood cultures.. Care significantly affected by the following Social Determinants of Health: Poor access to healthcare and/or lack of insurance, Poor access to transportation, Problems related to employment. 18:32 ED course: Spoke with Dr. Collazo and got acceptance for patient.. dr5 07/27 16:29 Order name: CBC with Diff; Complete Time: 17: dr5 07/27 16:29 Order name: CMP; Complete Time: 17:16 dr5 07/27 16:29 Order name: Lactate w/ 2H reflex if indic.; Complete Time: 17:16 dr5 07/27 16:29 Order name: Protime (+inr); Complete Time: 17:05 dr5 07/27 16:29 Order name: Ptt, Activated; Complete Time: 17:05 dr5 07/27 16:53 Order name: Blood Culture Adult (2) dr5 07/27 16:29 Order name: Accucheck; Complete Time: 16:45 dr5 07/27 16:29 Order name: Cardiac monitoring; Complete Time: 16:45 dr5 07/27 16:29 Order name: EKG - Nurse/Tech; Complete Time: 16:59 dr5 07/27 16:29 Order name: IV Saline Lock - Large Bore; Complete Time: 16:45 dr5 07/27 16:29 Order name: Labs collected and sent; Complete Time: 16:45 dr5 07/27 16:29 Order name: O2 Per Protocol; Complete Time: 16:45 dr5 07/27 16:29 Order name: O2 Sat Monitoring; Complete Time: 16:45 dr5 07/27 16:29 Order name: Vital Signs; Complete Time: 16:45 dr5 EC:51 Rate is 66 beats/min. Rhythm is regular. QRS [place] is Normal. NM interval is normal at dr5 158 msec. QRS interval is normal at 130 msec. Administered Medications: 16:59 Drug: Rocephin IV 1 grams IV at per protocol once; Given slow IV push per pharmacy ld1 instructions Route: IV; Rate: per protocol; Site: right antecubital; 18:50 Follow up: IV Status: Completed infusion bp 17:07 Drug: Ondansetron IVP 4 mg IVP once; over 2 minutes Route: IVP; Site: right antecubital;ld1 18:51 Follow up: Response: No adverse reaction bp 18:50 Drug: vancoMYCIN IVPB 1 grams IVPB once over 2 hrs Route: IVPB; Infused Over: 2 hrs; bp Site: right antecubital; 20:09 Follow up: Response: No adverse reaction; IV Status: Completed infusion km10 Disposition: 07/28 19:25 Co-signature as Attending Physician, Kwame Land MD I agree with the assessment and laura plan of care. Disposition Summary: 07/27/24 18:19 Transfer Ordered Notes: Transfer Location: [facility] dr5 Reason: Higher level of care dr5 Condition: Stable dr5 Problem: new dr5 Symptoms: are unchanged dr5 Accepting Physician: [facility](07/28/24 01:25) bm8 Diagnosis - Spontaneous bacterial peritonitis dr5 - Acute kidney failure, unspecified dr5 Forms: - Medication Reconciliation Form dr5 - SBAR form dr5 Signatures: Dispatcher [employer] EDMS Kwame Land MD MD cha Peltier, Brian, RN RN bp Radha Cole RN RN ld1 Faviola Torres, RN RN me1 Daniel Mistry, RN RN bm8 Contreras Zavala, INDEPENDENT AGENT MUSIC EDUCATION-C INDEPENDENT AGENT MUSIC EDUCATION-Cdr5 Martha العراقي RN km10 Corrections: (The following items were deleted from the chart) 07/27 16:30 16:30 CBC+H.LAB.BRZ ordered. EDMS EDMS 16:30 16:30 COMPREHENSIVE METABOLIC PANEL+C.LAB.BRZ ordered. EDMS EDMS 16:30 16:30 LACTATE+C.LAB.BRZ ordered. EDMS EDMS 16:30 16:30 PROTIME (+INR)+COAG.LAB.BRZ ordered. EDMS EDMS 16:30 16:30 PTT, ACTIVATED+COAG.LAB.BRZ ordered. EDMS EDMS 16:53 16:53 BLOOD CULTURE*+BA.LAB.BRZ ordered. EDMS EDMS 18:19 18:19 [facility] dr5 dr5 07/28 01:25 07/27 18:19 [facility] dr5 bm8
[2024-07-27] MEDS ORDERED: VANCOMYCIN 1 GM/VIAL ONE (18:45)
[2024-07-27] MEDS ORDERED: NA CHLORIDE 0.9% 250 ML ONE (18:45)
[2024-07-28 01:51] VITALS: TEMP 98.4
[2024-07-28 01:53] VITALS: O2SAT 99
[2024-07-28 01:54] VITALS: BP 138/85
--- NOTE | 2024-07-29 12:22 | EKG ---
Test Date: 2024-07-27 Test Time: 16:51:21 Custodial Aide: KATHLEEN MEASUREMENT RESULTS: Intervals: Rate: 66 MA: 158 QRSD: 130 QT: 452 QTc: 473 [place]: P: 78 MA: 158 QRS: 96 T: 42 INTERPRETIVE STATEMENTS: Normal sinus rhythm Rightward axis Nonspecific intraventricular block Nonspecific T wave abnormality Abnormal ECG Compared to ECG 07/04/2024 02:28:33 Right-axis deviation now present T-wave abnormality now present Sinus tachycardia no longer present ST (T wave) deviation no longer present Possible ischemia no longer present Electronically Signed On 07-29-24 12:18:30 CDT by Nicko Howard
== END 2024-07-28 01:25 | disposition short-term general hospital (02) ==
LOC: ER 14:42
DX: K65.2 Spontaneous bacterial peritonitis (principal); N17.9 Acute kidney failure, unspecified
CPT/HCPCS: 36415; 80053; 83605; 85025; 85610; 85730; 87040; 93005; 96365; 96366; 96367; 96375; 99285; J0696; J2405; J3370; J7050